=== PATIENT | female | born 1995 | race Caucasian/White ===

== ENCOUNTER 2020-05-11 12:25 | Outpatient (CLI) | payer OTHER, SELFPAY ==
--- NOTE | ~2020-05-11 | DEXA_ITS ---
Bone Density Report Name: Susan Barr Age: 24 Sex: Female Ethnicity: White Date of : 1995 Indication: Screening for Osteoporosis, snf depo use Referring Provider: Corey Gaona Study: Bone densitometry was performed. Exam Date: May 11, 2020 Accession number: [id number] Bone Density: Region BMD T-score Z-score Classification AP Spine (L1-L4) 1.156 1.0 1.0 Normal Femoral Neck (Left) 0.936 0.8 0.8 Normal Total Hip (Left) 1.130 1.5 1.5 Normal Total Hip Bilateral Avg 1.140 1.6 1.6 Normal Femoral Neck (Right) 0.952 0.9 0.9 Normal Total Hip (Right) 1.148 1.7 1.7 Normal World Health Organization criteria for BMD impression classify patients as: Normal (T-score at or above -1.0), Osteopenia (T-score between -1.0 and -2.5), or Osteoporosis (T-score at or below -2.5). 10-year Fracture Risk: FRAX not reported because: Premenopausal woman All T-scores for Spine Total, Hip Total, Femoral Neck at or above -1.0 Clinical Information Provided by Patient: Patient maximum height was 64 Drinks caffeinated beverages Onset of menses at age 12 Premenopausal Number of children 2 Impression: The patient's bone mass is within expected range for age, gender and ethnicity. Discussion: BONE DENSITY IS WITHIN EXPECTED LIMITS FOR AGE, SEX AND RACE. Bone density is within expected limits for age, sex and race at all sites measured. The patient should follow a healthful lifestyle (good nutrition with adequate calcium and vitamin D, and appropriate weight-bearing exercise). Follow-Up: Consider repeating this study in 5 years or sooner if there is some new clinical indication. Reported by: JULIA on 05/11/2020 12:53:00 PM. Reviewed, dictated and finalized at location [facility]
== END 2020-05-11 12:26 | disposition home or self-care (01) ==
LOC: ANHIMG 12:28
PROVIDERS: Visit Provider Obstetrics & Gynecology
DX: Z13.820 Encounter for screening for osteoporosis (principal)
CPT/HCPCS: 77080

== ENCOUNTER 2020-12-04 16:35 | Emergency (ER) | payer OTHER, SELFPAY ==
[2020-12-04 16:41] VITALS: BP 146/86; PULSE 100; RESP 16; TEMP 36.2; O2SAT 100
--- NOTE | 2020-12-04 16:48 | ED.DENTAL ---
HPI - Dental/Oral General Chief complaint: Dental/Oral Stated complaint: toothache Source: patient Limitations: no limitations History of Present Illness HPI Narrative: Patient presents for evaluation of left upper dental pain for the last week. She states the pain is severe, without descriptive quality, and has not responded to Tylenol or Advil. She states she has several teeth which are fractured. She states that pain is now migrating to the right side of her mouth and her right ear. No fever, chills, nausea, vomiting, trismus, problems handling secretions. She is not allergic to medications. She does not smoke. She states she contacted a dentist and they did not return her phone call. No additional complaints or concerns. Related Data Allergies Allergy/AdvReac Type Severity Reaction Status Date / Time No Known Allergies Allergy Unknown Unverified 10/14/19 17:21 Review of Systems Review of Systems: Narrative: CONSTITUTIONAL: Denies fever, chills, or sweats. EYES: Denies visual changes, redness, or discharge. ENT: Dental pain and right-sided otalgia. Denies rhinorrhea, congestion. CARDIOVASCULAR: Denies chest pain, palpitations, or edema. RESPIRATORY: Denies cough or dyspnea. GASTROINTESTINAL: Denies abdominal pain, nausea, vomiting, or diarrhea. GENITOURINARY: Denies dysuria or hematuria. SKIN: Denies rash or itching. MUSCULOSKELETAL: Denies back pain, joint pain, or myalgia. NEUROLOGIC: Denies headache, numbness, dizziness, or weakness. PSYCHIATRIC: Denies anxiety or depression. ON LICENSE OF [facility] Past Medical History Medical History (Updated 12/04/20 @ 16:53 by GELY Pacheco, ) No pertinent past medical history Surgical History Surgical History No pertinent past surgical history Family History Family History Mother No pertinent past medical history Father No pertinent past medical history Other Diabetes mellitus Social History Social History (Updated 12/04/20 @ 16:51 by GELY Pacheco, ) Smoking status: Never smoker Alcohol intake: never Substance use: never Living arrangements: with family Gender identity (if verbalized by the patient): Female Sexual Orientation (if Verbalized by the Patient): Straight or Heterosexual Spiritual care concerns: No Exam Narrative: Exam Narrative: GENERAL: Well-appearing, well-nourished, and in no acute distress. HEAD: Normocephalic, atraumatic. EYES: PERRLA and EOMI. ENT: Nares clear, no rhinorrhea or epistaxis. Mucous membranes moist. Tooth #15 and tooth #16 are both fractured. There is no visible or palpable abscess. Oropharynx without tonsillar hypertrophy exudate or other lesions. Bilateral TMs pearly martins nonbulging NECK: Supple. No adenopathy or masses. No carotid bruits or JVD CHEST: Clear to auscultation. No respiratory distress. No wheezes rales or rhonchi HEART: Regular rate and rhythm. No murmur heard. Normal peripheral pulses. ABDOMEN: Soft, nontender, nondistended, normal active bowel sounds. EXTREMITIES: Normal range of motion. No edema. SKIN: Warm, dry, no rash. NEURO: No focal deficits. Alert and oriented x3. PSYCH: Normal mood and affect. Course Course Emergency Course: This is a 25-year-old female who presents with 1 weeks worth of dental pain. On physical exam she has no drainable fluid collection. She does have 2 fractured teeth which are likely the source of her pain. We will place her on oral antibiotics. I offered to provide her prescription for analgesics, which she declined. Advised close follow-up with dentist and return for any worsening symptoms. Vital Signs Vital signs: Vital Signs Temperature 36.2 C L 12/04/20 16:41 Pulse Rate 100 12/04/20 16:41 Respiratory Rate 16 12/04/20 16:41 Blood Pressure 146/86 H 12/04/20 16:41 Pulse Oximetry 100 12/04/20 16:41 [place]
== END 2020-12-04 17:03 | disposition home or self-care (01) ==
PROVIDERS: Emergency Provider Nurse Practitioner
DX: S02.5XXA Fracture of tooth (traumatic), initial encounter for closed fracture (principal)
CPT/HCPCS: 99213; G0463

== ENCOUNTER 2022-03-16 12:19 | Outpatient (CLI) | payer OTHER, SELFPAY | END 2022-03-16 13:10 | disposition home or self-care (01) | LOC: ANHOBOP 13:07 → ANHOBPP 13:07 | PROVIDERS: Visit Provider Obstetrics & Gynecology | DX: O42.90 Premature rupture of membranes, unspecified as to length of time between rupture and onset of labor, unspecified weeks of gestation (principal); Z3A.00 Weeks of gestation of pregnancy not specified | CPT/HCPCS: 59025; 84112; 99199 ==

== ENCOUNTER 2022-04-05 04:39 | Inpatient (IN) | payer OTHER, SELFPAY ==
[2022-04-05] VITALS (126 sets, daily range): BP systolic 99–157; BP diastolic 49–101; PULSE 67–109; RESP 18; TEMP 36.2–36.9; O2SAT 97–100; BMI 40.6
--- NOTE | 2022-04-05 04:39 | LDADM ---
This patient, Susan Barr, was admitted to Labor/Delivery/Recovery 104 on 04/05/22 at 04:39. Plans for labor, pain management and were discussed with patient. Patient/family oriented to hospital policies and general routines including ID bracelet, bed and alarms, visiting hours, pain management, procedures, bathroom and other care routines, personal items, smoking policy, room service/diet and guest tray routines, security routines, and visiting hours. Patient/Family are encouraged to report perceived risks to care and to ask questions if they do not understand what they are told or what they should do. See OBIX for further documentation.
--- OUTSIDE RECORDS SUMMARY | 2022-04-05 04:45 | XMS_ITS | Encounter Summary ---
:1995 Author Reason for Visit None recorded. Assessment and Plan 1. Gestational diabetes mellitus, class A>1< ? non-stress test Discussion Note: None recorded.Patient educational handouts: No information available. Plan of Care Reminders Provider Appointments Clare 05/16/2022 8:30AM RN Schedule, correctional nurse None recorded. ? ? Referral None recorded. ? ? Procedures None recorded. ? ? Surgeries None recorded. ? ? Imaging Non-stress Test 03/28/2022 [place] Medications Name Start Date ? ? Humulin N NPH U-100 Insulin (isophane susp) 100 unit/m L subcutaneous ? INJECT 10 UNITS UNDER THE SKIN EVERY NIGHT AT BEDTIME OneTouch Delica Plus Lancet 33 gauge ? OneTouch Ultra Test strips ? TEST FOUR TIMES DAILY OneTouch Ultra2 Meter ? ? TRUEplus Insulin 0.5 mL 31 gauge x 5/16 syringe ? USE TO INJECT INSULIN EVERY DAY DIRECTED Medications Administered None recorded. Vitals None recorded. Results Lab Results None recorded. Allergies Code Code System Name Reaction Severity Onset NKDA ? ? ? Problems Name Status Onset Date Source ? Active 11/16/2021 ? Procedures Date Name Performed by ? 11/21/2021 Colposcopy Information not avai lable Notes: Colpo for abnormal pap that [place] wed lgsil 11/12/2015 Cholecystectomy Information not avai lable 03/03/2022 Non-stress Test [place] [address] [place] [address]
--- OUTSIDE RECORDS SUMMARY | 2022-04-05 04:45 | XMS_ITS | Encounter Summary ---
:1995 Author Reason for Visit OB visit ob 36wks edc 04/18/2022 lmp 07/12/2021 Assessment and Plan Assessment Note Patient is ___weeks . Discussed plan. Discussion Note: None recorded.Patient educational handouts: No information available. Plan of Care Reminders Provider Appointments Clare 05/16/2022 8:30AM RN Schedule, driver wheelchair None recorded. ? ? Referral None recorded. ? ? Procedures None recorded. ? ? Surgeries None recorded. ? ? Imaging None recorded. ? ? Medications Name Start Date ? ? Humulin [...] DAY DIRECTED Medications Administered None recorded. Vitals Height Weight BMI Blood Pressure 5 ft 3 in 229 lbs 40.6 kg/m2 133/84 mm[Hg] Results Lab Results None recorded. Allergies Code Code System Name Reaction Severity Onset NKDA ? ? ? Problems Name Status Onset Date Source ? Active 11/16/2021 ? Procedures Date Name Performed by ? 11/21/2021 Colposcopy Information not avai lable Notes: Colpo for abnormal pap that [place] wed lgsil 11/12/2015 Cholecystectomy Information not avai lable 02/21/2022 Non-stress Test
--- OUTSIDE RECORDS SUMMARY | 2022-04-05 04:45 | XMS_ITS | Encounter Summary ---
:1995 Author Reason for Visit None recorded. Assessment and Plan 1. Gestational diabetes mellitus, class A>1< ? non-stress test Discussion Note: None recorded.Patient educational handouts: No information available. Plan of Care Reminders Provider Appointments Clare 05/16/2022 8:30AM RN Schedule, principal embedded software engineer None recorded. ? ? Referral None recorded. ? ? Procedures None recorded. ? ? Surgeries None recorded. ? ? Imaging Non-stress Test 03/21/2022 [place] Medications Name Start Date ? ? Humulin [...] Information not avai lable 02/21/2022 Non-stress Test [place] [address] [place] [address]
--- OUTSIDE RECORDS SUMMARY | 2022-04-05 04:45 | XMS_ITS | Encounter Summary ---
:1995 Author Reason for Visit OB visit OB [id number] EDC LMP 07/12/2021 Assessment and Plan 1. Routine care Discussion Note: None recorded.Patient educational handouts: No information available. Plan of Care Reminders Provider Appointments Clare 05/16/2022 8:30AM RN Schedule, sexual health physician None recorded. ? ? Referral None recorded. [...] ft 3 in 229 lbs 40.6 kg/m2 138/89 mm[Hg] Results Lab Results None recorded. Allergies Code Code System Name Reaction Severity Onset NKDA ? ? ? Problems Name Status Onset Date Source ? Active 11/16/2021 ? Procedures Date Name Performed by ? 11/21/2021 Colposcopy Information not avai lable Notes: Colpo for abnormal pap that [place] wed lgsil 11/12/2015 Cholecystectomy Information not avai lable 03/03/2022 Non-stress Test [place] [id number] [address]
--- OUTSIDE RECORDS SUMMARY | 2022-04-05 04:45 | XMS_ITS | Encounter Summary ---
:1995 Author Reason for Visit None recorded. Assessment and Plan 1. Gestational diabetes mellitus, class A>1< ? non-stress test Discussion Note: None recorded.Patient educational handouts: No information available. Plan of Care Reminders Provider Appointments Clare 05/16/2022 8:30AM RN Schedule, program advocate None recorded. ? ? Referral None recorded. ? ? Procedures None recorded. ? ? Surgeries None recorded. ? ? Imaging Non-stress Test 03/14/2022 [place] Medications Name Start Date ? ? Humulin [...] DAY DIRECTED Medications Administered None recorded. Vitals Weight Blood Pressure 229 lbs 124/86 mm[Hg] Results Lab Results None recorded. Allergies Code Code System Name Reaction Severity Onset NKDA ? ? ? Problems Name Status Onset Date Source ? Active 11/16/2021 ? Procedures Date Name Performed by ? 11/21/2021 Colposcopy Information not avai lable Notes: Colpo for abnormal pap that [place] wed lgsil 11/12/2015 Cholecystectomy Information not avai lable 02/21/2022 Non-stress Test [place] [address]
--- OUTSIDE RECORDS SUMMARY | 2022-04-05 04:45 | XMS_ITS | Encounter Summary ---
:1995 Author Reason for Visit None recorded. Assessment and Plan 1. Polyhydramnios ? US, obstetric, biophysical profile Discussion Note: None recorded.Patient educational handouts: No information available. Plan of Care Reminders Provider Appointments Clare 05/16/2022 8:30AM RN Schedule, screen making supervisor None recorded. ? ? Referral None recorded. ? ? Procedures None recorded. ? ? Surgeries None recorded. ? ? Imaging US, Obstetric, Biophysical 03/28/2022 [facility] Profile Medications Name Start Date ? ? Humulin [...] Information not avai lable 03/03/2022 Non-stress Test [place] [id number] [address]
--- OUTSIDE RECORDS SUMMARY | 2022-04-05 04:45 | XMS_ITS | Encounter Summary ---
:1995 Author Reason for Visit OB visit ob [id number] edc 04/18/2022 lmp 07/12/2021 Assessment and Plan Assessment Note Patient is _35__weeks . Discuss ed plan. 1. Routine care Discussion Note: None recorded.Patient educational handouts: No information available. Plan of Care Reminders Provider Appointments Clare 05/16/2022 8:30AM RN Schedule, alumina plant supervisor None recorded. ? ? Referral None [...] BMI Blood Pressure 5 ft 3 in 231 lbs 40.9 kg/m2 121/86 mm[Hg] Results Lab Results None recorded. Allergies Code Code System Name Reaction Severity Onset NKDA ? ? ? Problems Name Status Onset Date Source ? Active 11/16/2021 ? Procedures Date Name Performed by ? 11/21/2021 Colposcopy Information not nafisa stewart Notes: Colpo for abnormal pap that [place] wed lgsil 11/12/2015 Cholecystectomy Infor
--- OUTSIDE RECORDS SUMMARY | 2022-04-05 04:45 | XMS_ITS ---
:1995 Author Care Team Providers Name Role Phone Maureen Smith Primary Care Provider Unavailable Allergies Code Code System Name Reaction Severity Status Onset NKDA ? Medications Name Status Start Date Stop Date ? ? amoxicillin 500 mg capsule Completed ? 12/29 Take 1 capsule twice a day by oral route. amoxicillin 875 mg tablet Completed ? 2021 cephalexin 500 mg capsule Completed ? 2020 Depo-Provera 150 mg/mL intramuscular suspension Completed ? 01/04/2021 Inject 1 mL every 3 months by intramuscular route. Depo-Provera 150 mg/mL intramuscular syringe Completed 07/22/2018 inject 1 milliliter by intramuscular route every 3 months Humulin N NPH U-100 Insulin (isophane susp) 100 Active ? Not available unit/mL subcutaneous ibuprofen 800 mg tablet Completed ? 01/04/20 21 OneTouch Delica Plus Lancet 33 gauge Active ? Not available OneTouch Ultra Test strips Active ? Not a vailable TEST FOUR TIMES DAILY OneTouch Ultra2 Meter Active ? Not availa ble Active ? Not available TRUEplus Insulin 0.5 mL 31 gauge x 5/16 Active ? Not available syringe Vitamin D2 1,250 mcg (50,000 unit) capsule Completed 04/1007/15/2014 take 1 capsule ([id number]) by oral route every week Problems Name Status Onset Date Source ? Uterine Size for Dates Discrepancy Unknown 12/09/2012 History Test Positive Unknown 12/09/2012 History Screening for Malignant Neoplasm of Cervix Unknown 12/09 History Congenital Malformation Unknown 12/11/2012 History Ultrasonography Unknown 12/11/2012
--- OUTSIDE RECORDS SUMMARY | 2022-04-05 04:45 | XMS_ITS | Encounter Summary ---
:1995 Author Reason for Visit None recorded. Assessment and Plan 1. Gestational diabetes mellitus, class A>1< ? non-stress test Discussion Note: None recorded.Patient educational handouts: No information available. Plan of Care Reminders Provider Appointments Clare 05/16/2022 8:30AM RN Schedule, tv host None recorded. ? ? Referral None recorded. ? ? Procedures None recorded. ? ? Surgeries None recorded. ? ? Imaging Non-stress Test 03/17/2022 [place] Medications Name Start Date ? ? Humulin [...] Information not avai lable 02/21/2022 Non-stress Test [place] [address] [place] [address]
--- OUTSIDE RECORDS SUMMARY | 2022-04-05 04:45 | XMS_ITS | Encounter Summary ---
:1995 Author Reason for Visit OB visit ob [id number] edc 04/18/2022 lmp 07/12/2021 Assessment and Plan Assessment Note Patient is _34_weeks . Discusse d plan. 1. Routine care Discussion Note: None recorded.Patient educational handouts: No information available. Plan of Care Reminders Provider Appointments Clare 05/16/2022 8:30AM RN Schedule, scout sniper None recorded. ? ? Referral None recorded. [...] ft 3 in 229 lbs 40.6 kg/m2 128/85 mm[Hg] Results Lab Results None recorded. Allergies Code Code System Name Reaction Severity Onset NKDA ? ? ? Problems Name Status Onset Date Source ? Active 11/16/2021 ? Procedures Date Name Performed by ? 11/21/2021 Colposcopy Information not nafisa stewart Notes: Colpo for abnormal pap that [place] wed lgsil 11/12/2015 Cholecystectomy Info
--- OUTSIDE RECORDS SUMMARY | 2022-04-05 04:45 | XMS_ITS | Encounter Summary ---
:1995 Author Reason for Visit None recorded. Assessment and Plan 1. Chronic hypertension complicating AN D/OR reason for care during ? US, obstetric, follow-up ? US, obstetric, biophysical profile + non-stress test Discussion Note: None recorded.Patient educational handouts: No information available. Plan of Care Reminders Provider Appointments Clare 05/16/2022 8:30AM RN Schedule, floorleader None recorded. ? ? Referral None recorded. ? ? Procedures None recorded. ? ? Surgeries None recorded. ? ? Imaging US, Obstetric, Follow-up 03/21/2022 [place] ? US, Obstetric, Biophysical 03/21/2022 [facility] [place] Profile + Non-stress Test Medications Name Start Date ? ? Humulin [...] Performed by ? 11/21/2021 Colposcopy Information not jamesai labmag Notes: Colpo for abnormal pap that [place] wed lgsil 11/12/2015 Cholecystectom
--- OUTSIDE RECORDS SUMMARY | 2022-04-05 04:46 | XMS_ITS | Encounter Summary ---
:1995 Author Reason for Visit None recorded. Assessment and Plan Assessment Note Diet Teaching 1. Gestational diabetes mellitus, class A>1< Pt requested diet teaching over the maru ne due to child caregiver. Diet teaching completed. Carb counts for meals and sna cks reviewed. Pt instructed on how to read nutritional labels and instructed on res earching carb counts for fresh fruits and vegetables. Pt provided with print outs via email with some fresh food carb counts and online resources reinforced for [facility] fresh food serving sizes and carb counts. Pt instructed on blood sugar lev el goals and importance of checking blood sugar and keeping blood sugar log. Pt in structed on high protein low carb and provided with food recommendations. Pt i nstructed on 2200 calorie ADA diet and importance of regular meals and snacks w ith controlled carb amounts for a detention stable control of blood sugar. Pt had sp ecific questions regarding sandwiches and caffine and was provided with recommenda tions. Pt also asked for specific meal options and breakfast, lunch, dinner, an d snack recommendations were discussed. Pt's next appt with KP is in 2 weeks so pt in formed we will call her next week to review her BS log. Pt verbalized understanding of information discussed. Suki Mahoney RN Discussion Note: None recorded.Patient educational handouts: No information available. Plan of Care Reminders Provider Appointments Clare 05/16/2022 8:30AM RN Schedule, historiography teacher None recorded. ? ? Referral None recorded. ? ? Procedures None recorded. ? ? Surgeries None recorded. ? ? Imaging None recorded. ? ? Medications Name Start Date ? ?
--- OUTSIDE RECORDS SUMMARY | 2022-04-05 04:46 | XMS_ITS | Encounter Summary ---
:1995 Author Reason for Visit OB visit 32WKS Assessment and Plan 1. Routine care Discussion Note: None recorded.Patient educational handouts: No information available. Plan of Care Reminders Provider Appointments Clare 05/16/2022 8:30AM RN Schedule, insurance healthcare consultant None recorded. ? ? Referral None recorded. [...] BMI Blood Pressure 5 ft 3 in 225 lbs 39.9 kg/m2 120/85 mm[Hg] Results Lab Results None recorded. Allergies Code Code System Name Reaction Severity Onset NKDA ? ? ? Problems Name Status Onset Date Source ? Active 11/16/2021 ? Procedures Date Name Performed by ? 11/21/2021 Colposcopy Information not avai lable Notes: Colpo for abnormal pap that win[place] wed lgsil 11/12/2015 Cholecystectomy Information not avai lable 02/21/2022 Non-stress Test [place] [address]
--- OUTSIDE RECORDS SUMMARY | 2022-04-05 04:46 | XMS_ITS | Encounter Summary ---
:1995 Author Reason for Visit OB visit 27w2d Assessment and Plan 1. Routine care Discussion Note: None recorded.Patient educational handouts: No information available. Plan of Care Reminders Provider Appointments Clare 05/16/2022 8:30AM RN Schedule, pipe stem aligner None recorded. ? ? Referral None recorded. [...] BMI Blood Pressure 5 ft 3 in 226 lbs 40 kg/m2 130/81 mm[Hg] Results Lab Results None recorded. Allergies Code Code System Name Reaction Severity Onset NKDA ? ? ? Problems Name Status Onset Date Source ? Active 11/16/2021 ? Procedures Date Name Performed by ? 11/21/2021 Colposcopy Information not avai lable Notes: Colpo for abnormal pap that win[place] wed lgsil 11/12/2015 Cholecystectomy Information not avai lable 12/29/2021 US, Obstetric, Follow-up [place] [address] [address]
--- OUTSIDE RECORDS SUMMARY | 2022-04-05 04:46 | XMS_ITS | Encounter Summary ---
:1995 Author Reason for Visit None recorded. Assessment and Plan 1. condition affecting obstetrica l care of mother ? US, obstetric, biophysical profile Discussion Note: None recorded.Patient educational handouts: No information available. Plan of Care Reminders Provider Appointments Clare 05/16/2022 8:30AM RN Schedule, communication studies professor None recorded. ? ? Referral None recorded. ? ? Procedures None recorded. ? ? Surgeries None recorded. ? ? Imaging US, Obstetric, Biophysical 03/03/2022 [facility] Profile Medications Name Start Date ? ? [...] Information not avai lable 02/21/2022 Non-stress Test [place] [address]
--- OUTSIDE RECORDS SUMMARY | 2022-04-05 04:46 | XMS_ITS | Encounter Summary ---
:1995 Author Reason for Visit OB visit OB [id number] EDC 04/18/2022 LMP 07/12/2021 Assessment and Plan 1. Routine care Discussion Note: None recorded.Patient educational handouts: No information available. Plan of Care Reminders Provider Appointments Clare 05/16/2022 8:30AM RN Schedule, teletype or varitype keyboard operator None recorded. ? ? Referral None recorded. [...] BMI Blood Pressure 5 ft 3 in 223 lbs 39.5 kg/m2 130/76 mm[Hg] Results Lab Results None recorded. Allergies Code Code System Name Reaction Severity Onset NKDA ? ? ? Problems Name Status Onset Date Source ? Active 11/16/2021 ? Procedures Date Name Performed by ? 11/21/2021 Colposcopy Information not avai lable Notes: Colpo for abnormal pap that [place] sun lgsil 11/12/2015 Cholecystectomy Information not avai lable Vaccine List None recorded. Social History Tobacco Smoking Status Never Smoker
--- OUTSIDE RECORDS SUMMARY | 2022-04-05 04:46 | XMS_ITS | Encounter Summary ---
:1995 Author Reason for Visit None recorded. Assessment and Plan 1. Gestational diabetes mellitus, class A>1< ? non-stress test Discussion Note: None recorded.Patient educational handouts: No information available. Plan of Care Reminders Provider Appointments Clare 05/16/2022 8:30AM RN Schedule, converter supervisor None recorded. ? ? Referral None recorded. ? ? Procedures None recorded. ? ? Surgeries None recorded. ? ? Imaging Non-stress Test 02/21/2022 [place] Medications Name Start Date ? ? Humulin [...] Information not avai lable 02/21/2022 Non-stress Test [place] [address] [place] [address]
--- OUTSIDE RECORDS SUMMARY | 2022-04-05 04:46 | XMS_ITS | Encounter Summary ---
:1995 Author Reason for Visit None recorded. Assessment and Plan 1. Gestational diabetes mellitus, class A>1< ? non-stress test Discussion Note: None recorded.Patient educational handouts: No information available. Plan of Care Reminders Provider Appointments Clare 05/16/2022 8:30AM RN Schedule, director food and beverage None recorded. ? ? Referral None recorded. ? ? Procedures None recorded. ? ? Surgeries None recorded. ? ? Imaging Non-stress Test 03/03/2022 [place] Medications Name Start Date ? ? Humulin [...] Information not avai lable 02/21/2022 Non-stress Test [place] [address] [place] [address]
--- OUTSIDE RECORDS SUMMARY | 2022-04-05 04:46 | XMS_ITS | Encounter Summary ---
:1995 Author Reason for Visit None recorded. Assessment and Plan 1. Gestational diabetes mellitus, class A>1< ? non-stress test Discussion Note: None recorded.Patient educational handouts: No information available. Plan of Care Reminders Provider Appointments Clare 05/16/2022 8:30AM RN Schedule, online merchandising coordinator None recorded. ? ? Referral None recorded. ? ? Procedures None recorded. ? ? Surgeries None recorded. ? ? Imaging Non-stress Test 03/10/2022 [place] Medications Name Start Date ? ? Humulin [...] Information not avai lable 02/21/2022 Non-stress Test [place] [address] [place] [address]
--- OUTSIDE RECORDS SUMMARY | 2022-04-05 04:46 | XMS_ITS | Encounter Summary ---
:1995 Author Reason for Visit OB visit OB [id number] EDC 04/18/2022 LMP 07/12/2021 Assessment and Plan Assessment Note Patient is _33__weeks . Discuss ed plan. 1. Routine care Discussion Note: None recorded.Patient educational handouts: No information available. Plan of Care Reminders Provider Appointments Clare 05/16/2022 8:30AM RN Schedule, shine worker None recorded. ? ? Referral None recorded. [...] ft 3 in 225 lbs 39.9 kg/m2 (1) 141/94 mm[H g] (2) 119/80 mm[Hg ] Results Lab Results None recorded. Allergies Code Code System Name Reaction Severity Onset NKDA ? ? ? Problems Name Status Onset Date Source ? Active 11/16/2021 ? Procedures Date Name Performed by ? 11/21/2021 Colposcopy Information not avai lable Notes: Colpo for abnorm
--- OUTSIDE RECORDS SUMMARY | 2022-04-05 04:46 | XMS_ITS | Encounter Summary ---
:1995 Author Reason for Visit None recorded. Assessment and Plan 1. Gestational diabetes mellitus, class A>1< ? US, obstetric, follow-up Discussion Note: None recorded.Patient educational handouts: No information available. Plan of Care Reminders Provider Appointments Clare 05/16/2022 8:30AM RN Schedule, industrial design intern None recorded. ? ? Referral None recorded. ? ? Procedures None recorded. ? ? Surgeries None recorded. ? ? Imaging US, Obstetric, Follow-up 02/21/2022 [place] Medications Name Start Date ? ? Humulin [...] Information not avai lable 02/21/2022 Non-stress Test [place] [address] [place] [address]
--- OUTSIDE RECORDS SUMMARY | 2022-04-05 04:46 | XMS_ITS | Encounter Summary ---
:1995 Author Reason for Visit None recorded. Assessment and Plan 1. Gestational diabetes mellitus, class A>1< ? non-stress test Discussion Note: None recorded.Patient educational handouts: No information available. Plan of Care Reminders Provider Appointments Clare 05/16/2022 8:30AM RN Schedule, mixing place supervisor None recorded. ? ? Referral None recorded. ? ? Procedures None recorded. ? ? Surgeries None recorded. ? ? Imaging Non-stress Test 03/07/2022 [place] Medications Name Start Date ? ? Humulin [...] recorded. Vitals Weight Blood Pressure 229 lbs 134/84 mm[Hg] Results Lab Results None recorded. Allergies Code Code System Name Reaction Severity Onset NKDA ? ? ? Problems Name Status Onset Date Source ? Active 11/16/2021 ? Procedures Date Name Performed by ? 11/21/2021 Colposcopy Information not avai lable Notes: Colpo for abnormal pap that [place] wed lgsil 11/12/2015 Cholecystectomy Information not avai lable 02/21/2022 Non-stress Test [place] [address]
[2022-04-05 05:49] LABS: Basophils Percent Auto 0.4 % (0.2-1.2); Eosinophils Percent Auto 0.4 % (0-4.4); Hemoglobin 11.2 g/dL (12.0-15.0); Immature Granulocyte Absolute 0.03 K/mm3 (0.00-0.031); Immature Granulocyte Percent A 0.4 % (0-0.5); Lymphocytes Absolute Auto 1.95 K/mm3 (0.9-3.2); Lymphocytes Percent Auto 26.1 % (18.3-44.2); Mean Corpuscular Hemoglobin 26.1 pg (26-34); Mean Corpuscular Volume 81.6 fl (80-100); Mean Platelet Volume 12.8 fl (7.4-10.4); Monocytes Absolute Auto 0.6 K/mm3 (0.1-0.6); Monocytes Percent Auto 7.6 % (2.6-8.5); Neutrophils Absolute Auto 4.9 K/mm3 (1.3-6.7); Neutrophils Percent Auto 65.1 % (45.5-73.1); Platelet Count Result 144 k/mm3 (150-375); Red Blood Count 4.29 M/mm3 (4.2-5.4); Red Cell Distribution Width 13.5 % (11.5-14.5); White Blood Count 7.5 K/mm3 (4.5-10.0)
[2022-04-05] MEDS: OXYTOCIN 30 UNITS/NS 500 ML 30 UNITS/500 ML BAG IV CONT (05:55)
[2022-04-05] MEDS: LACTATED RINGERS 1,000 ML 125 ML IV CONT ×3 (05:55→12:38)
[2022-04-05 06:07] LABS: Alanine Aminotransferase 13 U/L (6-35); Albumin Level 3.6 g/dL (3.5-5.1); Alkaline Phosphatase 556 U/L (38-126); Anion Gap 7 mmol/L (8-16); Aspartate Amino Transferase 23 U/L (14-36); Bilirubin,Total 0.2 mg/dL (0.2-1.3); Blood Urea Nitrogen 13 mg/dL (7-17); Calcium 8.3 mg/dL (8.4-10.2); Carbon Dioxide 20 mmol/L (22-30); Chloride 105 mmol/L (98-107); Estimated CRCL calculation 120 ml/min; Estimated Glomerular Filt Rate > 60; Glucose 101 mg/dL (65-110); Potassium 3.9 mmol/L (3.4-5.0); Sodium 132 mmol/L (137-145)
[2022-04-05 06:11] LABS: Uric Acid 5.7 mg/dL (2.5-7.5)
--- NOTE | 2022-04-05 06:19 | WPDANESEPP ---
Anes - Eval Pre Procedure Procedure: labor epidural Date/Time: 04/05/22 06:19 Surgeon: katie Pre Op Diagnosis: Induction Patient Data Age: 26 Gender: F Height: 1.6 m Weight: 104 kg Last Vital Signs Temp 36.4 C L 04/05/22 06:00 Pulse 82 04/05/22 05:58 BP 150/89 H 04/05/22 06:15 O2 Del Method Room Air 04/05/22 05:03 Allergies Allergy/AdvReac Type Severity Reaction Status Date / Time No Known Allergies Allergy Unknown Unverified 10/14/19 17:21 Home Medications Medication Instructions Recorded Confirmed Type vit no.95-ferrous 1 tablet PO DAILY 03/13/22 03/13/22 History fumarate 28 mg-folic acid 800 mcg tablet () Laboratory Tests 04/05/22 04/05/22 04/05/22 05:40 05:40 05:40 WBC 7.5 K/mm3 K/mm3 (4.5-10.0) RBC 4.29 M/mm3 M/mm3 (4.2-5.4) Hgb 11.2 g/dL L g/dL (12.0-15.0) Hct 35.0 % L % (37.0-47.0) MCV 81.6 fl fl (80-100) MCH 26.1 pg pg (26-34) MCHC 32.0 g/dl g/dl (32-36) RDW 13.5 % % (11.5-14.5) Plt Count 144 k/mm3 L k/mm3 (150-375) MPV 12.8 fl H fl (7.4-10.4) Immature Gran % (Auto) 0.4 % % (0-0.5) Neut % (Auto) 65.1 % % (45.5-73.1) Lymph % (Auto) 26.1 % % (18.3-44.2) [place] % (Auto) 7.6 % % (2.6-8.5) Eos % (Auto) 0.4 % % (0-4.4) Baso % (Auto) 0.4 % % (0.2-1.2) Lymph # (Auto) 1.95 K/mm3 K/mm3 (0.9-3.2) [place] # (Auto) 0.6 K/mm3 K/mm3 (0.1-0.6) Eos # (Auto) 0.0 K/mm3 K/mm3 (0-0.3) Baso # (Auto) 0.0 K/mm3 K/mm3 (0.0-0.1) Abs Immat Gran (auto) 0.03 K/mm3 K/mm3 (0.00-0.031) Absolute Neuts (auto) 4.9 K/mm3 K/mm3 (1.3-6.7) Absolute Nucleated RBC 0.0 K/mm3 K/mm3 (0.0-0.012) Nucleated RBC % 0.0 % % (0.0-0.2) Sodium Potassium Chloride Carbon Dioxide Anion Gap BUN Creatinine Estim Creat Clear Calc Estimated GFR Glucose Uric Acid 5.7 mg/dL mg/dL (2.5-7.5) Calcium Total Bilirubin AST ALT Alkaline Phosphatase Total Protein Albumin RPR Pending 04/05/22 05:40 WBC RBC Hgb Hct MCV MCH MCHC RDW Plt Count MPV Immature Gran % (Auto) Neut % (Auto) Lymph % (Auto) [place] % (Auto) Eos % (Auto) Baso % (Auto) Lymph # (Auto) [place] # (Auto) Eos # (Auto) Baso # (Auto) Abs Immat Gran (auto) Absolute Neuts (auto) Absolute Nucleated RBC Nucleated RBC % Sodium 132 mmol/L L mmol/L (137-145) Potassium 3.9 mmol/L mmol/L (3.4-5.0) Chloride 105 mmol/L mmol/L (98-107) Carbon Dioxide 20 mmol/L L mmol/L (22-30) Anion Gap 7 mmol/L L mmol/L (8-16) BUN 13 mg/dL mg/dL (7-17) Creatinine 0.70 mg/dL mg/dL (0.7-1.0) Estim Creat Clear Calc 120 ml/min ml/min Estimated GFR > 60 (59 - ) Glucose 101 mg/dL mg/dL (65-110) Uric Acid Calcium 8.3 mg/dL L mg/dL (8.4-10.2) Total Bilirubin 0.2 mg/dL mg/dL (0.2-1.3) AST 23 U/L U/L (14-36) ALT 13 U/L U/L (6-35) Alkaline Phosphatase 556 U/L H U/L (38-126) Total Protein 7.0 g/dL g/dL (6.3-8.2) Albumin 3.6 g/dL g/dL (3.5-5.1) RPR Patient hx anesthesia problems: none Family hx anesthesia problems: none Results Review: All pre-operative results and documents have been reviewed as part of the pre-operative evaluation. [facility] Past Medical History Medical History (Updated 04/05/22 @ 06:21 by Traci Interiano CRNA) Gestational diabetes Gestational HTN No pertinent past medical history Surgical
--- NOTE | 2022-04-05 07:11 | WPDOBADMIT ---
Obstetrics - Admit Note Admission Note: record reviewed. No pertinent additions to the history and/or any subsequent changes in the physical findings that are not consistent with the expected course of the were found. Patient admitted to labor and delivery for IOL for diet controlled GDM. 1.5/60/-2. AROM with light amount of clear odorless fluid. Anticipate Vaginal delivery. Additions to the history and/or subsequent changes in the physical findings follow. None.
[2022-04-05 09:32] LABS: Glucose Point of Care 98 mg/dl (65-105)
[2022-04-05 12:15] LABS: Glucose Point of Care 93 mg/dl (65-105)
[2022-04-05] MEDS: SODIUM CHLORIDE 0.9% IV 300 ML 600 ML I-UTERINE (12:38)
--- NOTE | 2022-04-05 13:56 | PM.OBPRVD ---
OB - Delivery Note Procedure Procedure: Events: Chronic Hypertension and Gestational Diabetes Induction method: Per Pitocin Protocol Delivery monitor: External FHT and External Uterine Route of delivery: Quantitative Blood Loss (ml): 183 Anesthesia type: Epidural Narrative: Mother and baby in stable condition. Cord gasses collected and handed off to staff. Baby Date of : 04/05/22 Time of : 13:25 Weeks of gestation at delivery: 38 gender: Male Weight (pounds): 7 Weight (ounces): 10 presentation: vertex position: Left Occiput Anterior Placenta delivery description: Spontaneous
[2022-04-05] MEDS: OXYTOCIN 30 UNITS/NS 500 ML 30 UNITS/500 ML BAG 125 UNITS IV CONT (14:01)
[2022-04-05 14:32] LABS: Rapid Plasma Reagin Non-Reactive (NonReactive)
[2022-04-05] MEDS: WITCH HAZEL 40 PADS 1 PAD TOPICAL (16:13)
--- NOTE | 2022-04-05 17:56 | OBPPTRN ---
1633 Patient transferred to post room #282 via W/C. Support person present. Oriented to unit, room, information board, rooming in, admission packet and security measures. Patient verbalizes understanding.
[2022-04-06] VITALS: BP 123/74; PULSE 89; RESP 18; TEMP 37.1; O2SAT 98
[2022-04-06] MEDS: IBUPROFEN 600 MG TABLET PO ×2 (03:56→11:02)
[2022-04-06 03:58] VITALS: BP 127/80; PULSE 77; RESP 18; TEMP 35.8; O2SAT 98
[2022-04-06 05:22] LABS: Hematocrit 34.7 % (37.0-47.0)
--- NOTE | 2022-04-06 06:30 | PC.NURSE ---
Pt introductions made and plan of care discussed per post , pain management, bottle feeding, daily care activities and pending discharge to home. PT and significant other both recipients of such instructions and no barriers to learning identified at this time. PT received such instructions per one to one discussion, mom baby care guide and demonstrations this shift. PT verbalized understanding of such care.
[2022-04-06 06:31] LABS: Glucose Point of Care 85 mg/dl (65-105)
--- NOTE | 2022-04-06 07:39 | PM.OBPNVD ---
OB - PN: Subj Subjective Date/time seen: 04/06/22 07:39 Patient comments: no complaints, pain well controlled, incisional pain, tolerating diet and flatus present OB - PN: Obj Data Labs CBC & Chem 7: 04/06/22 03:45 04/05/22 05:40 Labs: Laboratory Results - last 24 hr 04/05/22 04/05/22 04/05/22 05:40 09:30 12:12 Hgb Hct POC Capillary Glucose 98 93 RPR Non-reactive 04/06/22 04/06/22 03:45 06:28 Hgb 11.0 L Hct 34.7 L POC Capillary Glucose 85 RPR OB - PN A/P Plan day: 1 Plan: routine care Comments: No problems, routine care Time Spent With Patient Time: Total time spent is greater than 50% in coordination of care (as documented) at patient's floor/unit and/or counseling patient: Exam Const: General: comfortable, no acute distress and alert Resp: Effort & Inspection: normal respiratory effort Auscultation: no crackles, no rales and no rhonchi Cardio: Rate: regular rate Heart sounds: no click, no murmurs and no rubs GI: Inspection: non-distended GI Palp: No Tenderness to palpation present (GI) Auscultation: normal bowel sounds Other: Incision - CDI Extrem: General: normal to inspection, no pedal edema and no calf tenderness
--- NOTE | 2022-04-06 07:40 | PM.OBDSVD ---
DS: Admitting Diagnosis Discharge Date 04/06/2022 Admitting Diagnosis term gestation DS: Discharge Diagnosis Discharge Diagnosis (1) Term : Code(s): Z34.90 - Encounter for supervision of normal , unspecified, unspecified trimester Status: Acute OB - DS: Summary OB Procedures : None OB Procedures Intrapartum: Spontaneous Vag Delivery OB Procedures: : None Time Spent with Patient Time attestation: Total time spent providing and/or coordinating discharge services: DS: Data Data Completed and Pending Pending studies at discharge: Pending at discharge 04/05/22 15:36 Surgical [PTH] Routine Labs on day of discharge: Labs from last 24 hours 04/06/22 04/06/22 04/05/22 06:28 03:45 12:12 Hgb 11.0 L Hct 34.7 L POC Capillary Glucose 85 93 RPR 04/05/22 04/05/22 09:30 05:40 Hgb Hct POC Capillary Glucose 98 RPR Non-reactive Discharge Plan Discharge Discharging Clinician: Corey Gaona Patient Disposition: Home, Self-Care Activity: pelvic rest Diet: regular Patient Instructions: Antibiotic Form Stand Alone Forms: General Discharge Information Follow-up/Referrals: Corey Gaona MD [Physician] - Discharge Medications: Continued PNV cmb#95-ferrous fumarate-FA [] 28 mg iron- 800 mcg Tablet 1 tablet PO DAILY Date of admission: 04/05/22 04:39 Primary Care Provider: PHYSICIAN,MANUFACTURING BUSINESS ANALYST Admitting Provider: Corey Gaona Attending physician on admission: Maureen Smith Condition: Stable
[2022-04-06 08:00] VITALS: BP 131/86; PULSE 86; RESP 16; TEMP 36.2; O2SAT 99
--- NOTE | 2022-04-06 09:24 | WPDANLDPN2 ---
Anes-Prog Note L&D Date/Time: 04/06/22 09:24 Comfortable throughout: labor and delivery Neuraxial method: epidural Epidural/Spinal procedure site: clean & non-tender Neuro status: Neuro function grossly intact. Cardiovascular status: normal Respiratory status: normal Airway patency: baseline Mental status: baseline Post-Op hydration status: normal Vital Signs: Last Vital Signs Temp 35.8 C L 04/06/22 03:58 Pulse 77 04/06/22 03:58 Resp 18 04/06/22 03:58 BP 127/80 04/06/22 03:58 Pulse Ox 98 04/06/22 03:58 O2 Del Method Room Air 04/05/22 20:00 Pain score (VAS): 10 Post-procedural complaints: none Patient feedback: Patient satisfied with anesthetic care.
[2022-04-06 11:00] VITALS: PULSE 86; RESP 16; O2SAT 99
[2022-04-06] MEDS: DOCUSATE SODIUM 100 MG CAPSULE PO (11:02)
[2022-04-06] MEDS: ACETAMINOPHEN 325 MG TABLET 650 MG PO (11:03)
[2022-04-06] MEDS: MULTIVIT/MIN/PREN/FOL AC/IRON TABLET 1 TAB PO (11:03)
[2022-04-06 11:41] VITALS: BP 129/83; PULSE 72; RESP 16; TEMP 36.3; O2SAT 100
--- NOTE | 2022-04-06 14:30 | PC.NURSE ---
PT received discharge instructions per protocol and verbalized understanding of such care.
--- NOTE | 2022-04-06 15:00 | PC.NURSE ---
Pt discharged to home ambulatory to waiting car accompanied by family and infant. Follow up appts confirmed
== END 2022-04-06 15:00 | disposition home or self-care (01) | DRG 560 ==
LOC: ANHOB2 04-06 08:18 → ANHLDR 04-07 09:23 → ANHOB2 04-07 09:23
PROVIDERS: Advanced Practice Midwife; Admitting Provider Obstetrics & Gynecology; Visit Provider Obstetrics & Gynecology
DX: O24.420 Gestational diabetes mellitus in childbirth, diet controlled (principal); Z37.0 Single live birth; Z3A.38 38 weeks gestation of pregnancy; O13.4 Gestational [pregnancy-induced] hypertension without significant proteinuria, complicating childbirth; O36.8330 Maternal care for abnormalities of the fetal heart rate or rhythm, third trimester, not applicable or unspecified
CPT/HCPCS: 36415; 80053; 82948; 84550; 85014; 85018; 85025; 86592; 86850; 86900; 86901; 88307; A9270; J2590; J2795; J7030; J7120

== ENCOUNTER 2022-10-10 08:37 | Emergency (ER) | payer OTHER, SELFPAY ==
[2022-10-10 08:57] VITALS: BP 139/70; PULSE 101; RESP 16; TEMP 36.3; O2SAT 99
--- NOTE | 2022-10-10 09:29 | ED.URI ---
HPI - URI/Sore Throat General Chief Complaint: Upper Respiratory Infection Stated Complaint: sore throat Time Seen by Provider: 10/10/22 09:21 History of Present Illness HPI Narrative: 26-year-old female presented for complaint of sore throat and right neck pain over the last 2 days. Pain worse with swallowing or eating. Pain radiates to the left ear. She rates pain 4/10. She endorses she gets strep throat at least twice a year and this feels similar. She denies associated sinus congestion, headache, nausea, cough, shortness of breath or wheezing. She has not taken anything for symptoms. Denies sick contacts. Related Data Home Medications Medication Instructions Recorded Confirmed vit no.95-ferrous 1 tablet PO DAILY 03/13/22 03/13/22 fumarate 28 mg-folic acid 800 mcg tablet () Allergies Allergy/AdvReac Type Severity Reaction Status Date / Time No Known Allergies Allergy Unknown Verified 10/10/22 09:48 Review of Systems Review of Systems: CONSTITUTIONAL: Denies body aches, fever, chills, or sweats. EYES: Denies visual changes, redness, or discharge. ENT: Denies rhinorrhea, congestion, or otalgia. CARDIOVASCULAR: Denies chest pain, palpitations, or edema. RESPIRATORY: Denies dyspnea. GASTROINTESTINAL: Denies abdominal pain, nausea, vomiting, or diarrhea. SKIN: Denies rash, itching, or wounds. MUSCULOSKELETAL: Denies back pain, joint pain, or myalgia. NEUROLOGIC: Denies headache PMFSH Past Medical History Medical History Gestational diabetes Gestational HTN No pertinent past medical history Surgical History Surgical History No pertinent past surgical history Family History Family History Mother No pertinent past medical history Father No pertinent past medical history Other Diabetes mellitus Social History Social History Smoking status: Never smoker Second hand tobacco smoke exposure: No Alcohol intake: never Substance use: never Gender identity (if verbalized by the patient): Female Sexual Orientation (if Verbalized by the Patient): Straight or Heterosexual Spiritual care concerns: No Exam Narrative: GENERAL: well-appearing, no acute distress. EYES: conjunctivae clear ENT: Mucous membranes moist. TMs pearly martins with normal light reflex bilaterally; no tragal tenderness. Oropharynx erythematous without lesions. Tonsils enlarged 3+ and without exudate. No drooling, no hoarseness, no trismus, uvula midline. No tripod positioning, hot potato voice, or soft palate swelling. NECK: Supple. right anterior cervical lymphadenopathy CHEST: Clear to auscultation, breath sounds equal. No respiratory distress, speaks in full sentences. HEART: Regular rate and rhythm. No murmur heard. SKIN: Warm, dry, no rash. NEURO: Alert and oriented x3. Course Course Emergency Course: Patient is aware of diagnosis, understands and agrees to treatment plan. Anticipatory guidance given. Patient agrees to follow-up as directed and is aware of reasons to seek care at the emergency department. Portions of this record may have been created with voice recognition software Level of Care: Express Care Visit Vital Signs Vital signs: Vital Signs Temperature 97.3 F L 10/10/22 08:57 Pulse Rate 101 H 10/10/22 08:57 Respiratory Rate 16 10/10/22 08:57 Blood Pressure 139/70 10/10/22 08:57 Pulse Oximetry 99 10/10/22 08:57 Oxygen Delivery Room Air 10/10/22 08:57 Temperature 97.3 F L 10/10/22 08:57 Pulse Rate 101 H 10/10/22 08:57 Respiratory Rate 16 10/10/22 08:57 Blood Pressure 139/70 10/10/22 08:57 Pulse Oximetry 99 10/10/22 08:57 Oxygen Delivery Room Air 10/10/22 08:57 MDM - URI/Sore Throat MDM Narrative Med
== END 2022-10-10 09:52 | disposition home or self-care (01) ==
PROVIDERS: Emergency Provider Nurse Practitioner Family
DX: J02.9 Acute pharyngitis, unspecified (principal)
CPT/HCPCS: 87081; 87880; 99213; G0463

== ENCOUNTER 2023-02-12 08:29 | Inpatient (IN) | payer OTHER, SELFPAY ==
[2023-02-12] VITALS (68 sets, daily range): BP systolic 110–146; BP diastolic 59–90; PULSE 83–117; RESP 18; TEMP 36.6–37.5; O2SAT 96–100; BMI 40.4
--- NOTE | ~2023-02-12 | US_ITS ---
EXAMINATION: US OB limited DATE: 02/12/2023 09:08 INDICATION: presentation assessment during third trimester TECHNIQUE: Real-time ultrasound of the pelvis was performed. The interpreting radiologist was not pre sent for the study. COMPARISON: None. FINDINGS: There is a single living fetus in vertex presentation. The placenta is fundal. cardia c activity and movement are noted. heart rate is 139 beats per minute (bpm). The amniotic fluid index is subjectively normal. IMPRESSION: 1. Single living fetus in vertex presentation. Reviewed, dictated and finalized at location B.
[2023-02-12 08:56] LABS: Basophils Percent Auto 0.4 % (0.2-1.2); Eosinophils Percent Auto 0.2 % (0-4.4); Hematocrit 33.7 % (37.0-47.0); Hemoglobin 10.8 g/dL (12.0-15.0); Immature Granulocyte Absolute 0.04 K/mm3 (0.00-0.031); Immature Granulocyte Percent A 0.4 % (0-0.5); Immature Platelet Fraction Pct 15.1 % (0.9-11.2); Lymphocytes Absolute Auto 1.46 K/mm3 (0.9-3.2); Lymphocytes Percent Auto 15.2 % (18.3-44.2); Mean Corpuscular Hemoglobin 26.7 pg (26-34); Mean Corpuscular Volume 83.2 fl (80-100); Mean Platelet Volume 12.2 fl (7.4-10.4); Monocytes Absolute Auto 0.5 K/mm3 (0.1-0.6); Neutrophils Absolute Auto 7.6 K/mm3 (1.3-6.7); Neutrophils Percent Auto 78.8 % (45.5-73.1); Platelet Count Result 133 k/mm3 (150-375); Red Blood Count 4.05 M/mm3 (4.2-5.4); Red Cell Distribution Width 14.6 % (11.5-14.5); White Blood Count 9.6 K/mm3 (4.5-10.0)
--- NOTE | 2023-02-12 09:01 | LDADM ---
This patient, Susan Barr, was admitted to Labor/Delivery/Recovery 108 on 02/12/23 at 08:29. Plans for labor, pain management and were discussed with patient. Patient/family oriented to hospital policies and general routines including ID bracelet, bed and alarms, visiting hours, pain management, procedures, bathroom and other care routines, personal items, smoking policy, room service/diet and guest tray routines, security routines, and visiting hours. Patient/Family are encouraged to report perceived risks to care and to ask questions if they do not understand what they are told or what they should do. See [facility] for further documentation.
[2023-02-12 09:22] LABS: Glucose Point of Care 83 mg/dl (65-105)
--- NOTE | 2023-02-12 09:25 | WPDANESEPP ---
Anes - Eval Pre Procedure Procedure: labor epidural Date/Time: 02/12/23 09:25 Surgeon: katie Preop Diagnosis: pain during labor Pre Op Diagnosis: Leaking and Contractions Patient Data Age: 27 Gender: F Height: 1.63 m Weight: 107 kg Last Vital Signs Temp 36.6 C 02/12/23 08:53 Pulse 92 02/12/23 09:15 BP 131/80 02/12/23 09:15 Allergies Allergy/AdvReac Type Severity Reaction Status Date / Time No Known Allergies Allergy Unknown Verified 10/10/22 09:48 Home Medications Medication Instructions Recorded Confirmed Type vit no.95-ferrous 1 tablet PO DAILY 03/13/22 02/12/23 History fumarate 28 mg-folic acid 800 mcg tablet () ferrous sulfate 325 mg (65 mg 325 mg PO DAILY 02/12/23 02/12/23 History iron) tablet (Iron (ferrous sulfate)) Laboratory Tests 02/12/23 02/12/23 02/12/23 08:42 08:42 08:42 WBC 9.6 K/mm3 K/mm3 (4.5-10.0) RBC 4.05 M/mm3 L M/mm3 (4.2-5.4) Hgb 10.8 g/dL L g/dL (12.0-15.0) Hct 33.7 % L % (37.0-47.0) MCV 83.2 fl fl (80-100) MCH 26.7 pg pg (26-34) MCHC 32.0 g/dl g/dl (32-36) RDW 14.6 % H % (11.5-14.5) Plt Count 133 k/mm3 L k/mm3 (150-375) MPV 12.2 fl H fl (7.4-10.4) Immature Gran % (Auto) 0.4 % % (0-0.5) Neut % (Auto) 78.8 % H % (45.5-73.1) Lymph % (Auto) 15.2 % L % (18.3-44.2) [place] % (Auto) 5.0 % % (2.6-8.5) Eos % (Auto) 0.2 % % (0-4.4) Baso % (Auto) 0.4 % % (0.2-1.2) Lymph # (Auto) 1.46 K/mm3 K/mm3 (0.9-3.2) [place] # (Auto) 0.5 K/mm3 K/mm3 (0.1-0.6) Eos # (Auto) 0.0 K/mm3 K/mm3 (0-0.3) Baso # (Auto) 0.0 K/mm3 K/mm3 (0.0-0.1) Abs Immat Gran (auto) 0.04 K/mm3 H K/mm3 (0.00-0.031) Absolute Neuts (auto) 7.6 K/mm3 H K/mm3 (1.3-6.7) Absolute Nucleated RBC 0.0 K/mm3 K/mm3 (0.0-0.012) Nucleated RBC % 0.0 % % (0.0-0.2) % Immature Plt Fraction 15.1 % H % (0.9-11.2) POC Capillary Glucose RPR Pending Blood Type Pending Antibody Screen Pending 02/12/23 08:54 WBC RBC Hgb Hct MCV MCH MCHC RDW Plt Count MPV Immature Gran % (Auto) Neut % (Auto) Lymph % (Auto) [place] % (Auto) Eos % (Auto) Baso % (Auto) Lymph # (Auto) [place] # (Auto) Eos # (Auto) Baso # (Auto) Abs Immat Gran (auto) Absolute Neuts (auto) Absolute Nucleated RBC Nucleated RBC % % Immature Plt Fraction POC Capillary Glucose 83 mg/dl mg/dl (65-105) RPR Blood Type Antibody Screen Patient hx anesthesia problems: none Family hx anesthesia problems: none Results Review: All pre-operative results and documents have been reviewed as part of the pre-operative evaluation. [facility] Past Medical History Medical History Gestational diabetes Gestational HTN No pertinent past medical history Surgical History Surgical History No pertinent past surgical history Family History Family History Mother No pertinent past medical history Father No pertinent past medical history Other Diabetes mellitus Social History Social History Smoking status: Never smoker Second hand tobacco smoke exposure: No Alcohol intake: never Substance use: never Lack of Transportation: No Lack of Food: Never True Current Housing: I Have Housing Concerned About Future Housing: No Difficulty Paying Gas/Electric Bills: No Difficulty Paying for Meds: No
[2023-02-12] MEDS: LACTATED RINGERS 1,000 ML 125 ML IV CONT ×2 (09:36→13:20)
[2023-02-12] MEDS: AMPICILLIN 2 GM/NS 100 ML 2 GM/100 ML BAG IVPB (09:37)
[2023-02-12] MEDS: OXYTOCIN 30 UNITS/NS 500 ML 30 UNITS/500 ML BAG IV CONT (09:45)
[2023-02-12 11:30] LABS: Rapid Plasma Reagin Non-Reactive (NonReactive)
--- NOTE | 2023-02-12 12:17 | PM.IMHP ---
H&P: HPI History of Present Illness Date/Time: 02/12/2376 Chief Complaint: Spontaneous rupture of membranes Narrative: 27 y/o at 34w5d here with srom. complicated by chtn (no medications), late diagnosis gdm (diet controlled) but not compliant with bringing in log, LGA and poly. On admission VSS Contractions regular FHR category 1 Cervix 1/thick/-3 scant fluid with a small bloody show ROM plus positive Pt comfortable Currently expectant management Antibiotics Offered transfer d/t early gestation and late dx GDM. Pt declines. Will speak with Dr Gaona about plan of care. Review of Systems Review of Systems: All systems reviewed & are unremarkable except as noted in HPI and below Constitutional: Constitutional: Reports as per HPI and Reports no additional constitutional complaints Eyes: Eyes: Reports as per HPI ENT: Reports system reviewed and no additional complaints, except as documented Cardiovascular: Cardiovascular: Reports as per HPI Respiratory: Respiratory: Reports as per HPI Gastrointestinal: Gastrointestinal: Reports as per HPI Genitourinary: Genitourinary: Reports no additional female genitourinary complaints Musculoskeletal: Musculoskeletal: Reports no additional musculoskeletal complaints Integumentary/Breasts: Skin/Breast: Reports system reviewed and no additional complaints, except as docu Neurologic: Reports system reviewed and no additional complaints, except as documented Psychiatric: Psychiatric: Reports no additional psychiatric complaints Endocrine: Endocrine: Reports no additional endocrine complaints Hematologic/Lymphatic: Hematologic/Lymphatic: Reports no additional hematologic/lymphatic complaints Allergic/Immunologic: Allergic/Immunologic: Reports no additional allergic/immunologic complaints REPLACED BY [facility] Past Medical History Medical History Gestational diabetes Gestational HTN No pertinent past medical history Surgical History Surgical History No pertinent past surgical history Family History Family History Mother No pertinent past medical history Father No pertinent past medical history Other Diabetes mellitus Social History Social History Smoking status: Never smoker Second hand tobacco smoke exposure: No Alcohol intake: never Substance use: never Lack of Transportation: No Lack of Food: Never True Current Housing: I Have Housing Concerned About Future Housing: No Difficulty Paying Gas/Electric Bills: No Difficulty Paying for Meds: No Currently Unemployed: No Education: High School Diploma/GED Difficulty w/ Childcare or Family Care: No Living arrangements: with family Gender identity (if verbalized by the patient): Female Sexual Orientation (if Verbalized by the Patient): Straight or Heterosexual Spiritual care concerns: No Meds Home Medications and Allergies Home Medications Medication Instructions Recorded Confirmed Type vit no.95-ferrous 1 tablet PO DAILY 03/13/22 02/12/23 History fumarate 28 mg-folic acid 800 mcg tablet () ferrous sulfate 325 mg (65 mg 325 mg PO DAILY 02/12/23 02/12/23 History iron) tablet (Iron (ferrous sulfate)) Allergies Allergy/AdvReac Type Severity Reaction Status Date / Time No Known Allergies Allergy Unknown Verified 10/10/22 09:48 Vital Signs Vital Signs - 24 hr 02/12/23 08:48 02/12/23 08:53 02/12/23 09:00 Temperature 97.8 F Pulse Rate 116 H 105 H Blood Pressure 128/90 126/78 Pulse Oximetry 02/12/23 09:01 02/12/23 09:15 02/12/23 09:30 Temperature Pulse Rate 102 H 92 101 H Blood Pressure 120/81 131/80 130/82 Pulse Oximetry 02/12/23 09:45 02/12/23 10:00 02/12/23 10:15 Temperat
[2023-02-12 12:22] LABS: Glucose Point of Care 80 mg/dl (65-105)
--- NOTE | 2023-02-12 12:26 | WPDOBADMIT ---
Obstetrics - Admit Note Admission Note: See admission h&p. record reviewed. No pertinent additions to the history and/or any subsequent changes in the physical findings that are not consistent with the expected course of the were found. Additions to the history and/or subsequent changes in the physical findings follow. None.
[2023-02-12] MEDS: AMPICILLIN 1 GM/NS 50 ML 1 GM/50 ML BAG IVPB (13:20)
[2023-02-12 14:15] LABS: Glucose Point of Care 70 mg/dl (65-105)
[2023-02-12 14:29] LABS: Amphetamine Screen Urine Negative (Negative); Barbiturate Screen Urine Negative (Negative); Benzodiazepines Screen Urine Negative (Negative); Cannabinoid Screen Urine Negative (Negative); Cocaine Screen Urine Negative (Negative); Methadone Screen Urine Negative (Negative); Opiate Screen Urine Negative (Negative); Phencyclidine Screen Urine Negative (Negative)
--- NOTE | 2023-02-12 15:52 | PM.OBPRVD ---
OB - Delivery Note Procedure Delivery date: 02/12/23 Procedure: Events: Chronic Hypertension and Gestational Diabetes Induction method: None Delivery monitor: External FHT and External Uterine Route of delivery: Episiotomy description: None Laceration Description: None Specimen: Yes Quantitative Blood Loss (ml): 208 Anesthesia type: None Complications: Port wine stained fluid in labor. No s/s of abruption. Narrative: Pedi present for delivery. vigorous but cord was clamped and cut to hand of to awaiting staff per their request for early gestation. Baby Date of : 02/12/23 Time of : 15:14 Weeks of gestation at delivery: 34 Weight (pounds): 7 Weight (ounces): 0 presentation: vertex position: Left Occiput Anterior Placenta delivery description: Spontaneous (Sent to pathology along with membranes/clot that delivered long before the placenta.) score one minute: 8 score five minutes: 9
[2023-02-12] MEDS: OXYTOCIN 30 UNITS/NS 500 ML 30 UNITS/500 ML BAG 125 UNITS IV CONT (15:54)
--- NOTE | 2023-02-12 18:03 | OBPPTRN ---
Patient transferred to post room #292 via w/c. Support person present. Oriented to unit, room, information board, rooming in, admission packet and security measures. Patient verbalizes understanding.
[2023-02-13] VITALS: BP 105/67; PULSE 102; RESP 18; TEMP 36.9
[2023-02-13 05:28] LABS: Hematocrit 29.5 % (37.0-47.0); Hemoglobin 9.6 g/dL (12.0-15.0)
[2023-02-13 07:50] VITALS: BP 120/84; PULSE 72; RESP 16; TEMP 36.6; O2SAT 100
--- NOTE | 2023-02-13 07:59 | PM.OBPNVD ---
OB - PN: Subj Subjective Date/time seen: 02/13/23 07:59 Patient comments: no complaints baby status: doing well OB - PN: Obj Data Labs 02/13/23 04:28 Labs: Laboratory Results - last 24 hr 02/12/23 02/12/23 02/12/23 08:42 08:42 08:42 WBC 9.6 RBC 4.05 L Hgb 10.8 L Hct 33.7 L MCV 83.2 MCH 26.7 MCHC 32.0 RDW 14.6 H Plt Count 133 L MPV 12.2 H Immature Gran % (Auto) 0.4 Neut % (Auto) 78.8 H Lymph % (Auto) 15.2 L [place] % (Auto) 5.0 Eos % (Auto) 0.2 Baso % (Auto) 0.4 Lymph # (Auto) 1.46 [place] # (Auto) 0.5 Eos # (Auto) 0.0 Baso # (Auto) 0.0 Abs Immat Gran (auto) 0.04 H Absolute Neuts (auto) 7.6 H Absolute Nucleated RBC 0.0 Nucleated RBC % 0.0 % Immature Plt Fraction 15.1 H POC Capillary Glucose Urine Opiates Screen Urine Methadone Screen Ur Barbiturates Screen Ur Phencyclidine Scrn Ur Amphetamine Screen U Benzodiazepines Scrn Urine Cocaine Screen U Cannabinoids Screen RPR Non-reactive Blood Type A Positive Antibody Screen Negative 02/12/23 02/12/23 02/12/23 08:54 12:06 13:26 WBC RBC Hgb Hct MCV MCH MCHC RDW Plt Count MPV Immature Gran % (Auto) Neut % (Auto) Lymph % (Auto) [place] % (Auto) Eos % (Auto) Baso % (Auto) Lymph # (Auto) [place] # (Auto) Eos # (Auto) Baso # (Auto) Abs Immat Gran (auto) Absolute Neuts (auto) Absolute Nucleated RBC Nucleated RBC % % Immature Plt Fraction POC Capillary Glucose 83 80 Urine Opiates Screen Negative Urine Methadone Screen Negative Ur Barbiturates Screen Negative Ur Phencyclidine Scrn Negative Ur Amphetamine Screen Negative U Benzodiazepines Scrn Negative Urine Cocaine Screen Negative U Cannabinoids Screen Negative RPR Blood Type Antibody Screen 02/12/23 02/13/23 14:11 04:28 WBC RBC Hgb 9.6 L Hct 29.5 L MCV MCH MCHC RDW Plt Count MPV Immature Gran % (Auto) Neut % (Auto) Lymph % (Auto) [place] % (Auto) Eos % (Auto) Baso % (Auto) Lymph # (Auto) [place] # (Auto) Eos # (Auto) Baso # (Auto) Abs Immat Gran (auto) Absolute Neuts (auto) Absolute Nucleated RBC Nucleated RBC % % Immature Plt Fraction POC Capillary Glucose 70 Urine Opiates Screen Urine Methadone Screen Ur Barbiturates Screen Ur Phencyclidine Scrn Ur Amphetamine Screen U Benzodiazepines Scrn Urine Cocaine Screen U Cannabinoids Screen RPR Blood Type Antibody Screen Imaging Radiologist's impression: Impressions Obstetrics Ultrasound 02/12/23 09:10 IMPRESSION: 1. Single living fetus in vertex presentation. OB - PN A/P Plan day: 1 Plan: routine care Time Spent With Patient Time: Total time spent is greater than 50% in coordination of care (as documented) at patient's floor/unit and/or counseling patient: Time with patient: less than 15 minutes Review of Systems Review of Systems: All systems reviewed & are unremarkable except as noted in HPI and below Exam Narrative: Fundus firm and vaginal flow controlled. No lower ext redness, warmth, or edema. Negative homans. Denies h/a, v/d or e/p. Reflexes normal. Const: General: comfortable Chest: Breast/axilla inspection: normal inspection of the breasts Resp: Effort & Inspection: normal respiratory effort Cardio: Rate: regular rate GI: GI Palp: Yes Soft to palpation Psych: Appearance: grossly normal Affect: normal affect Attitude: cooperative Thought content: Yes Normal thought content present Judgement: Good judgement present (Psych)
[2023-02-13] MEDS: POLYSACCHARIDE IRON COMPLEX 150 MG CAPSULE PO ×2 (08:17→17:36)
[2023-02-13 11:43] VITALS: BP 118/74; PULSE 95; RESP 18; TEMP 36.4; O2SAT 99
[2023-02-13 19:40] VITALS: BP 115/72; PULSE 86; RESP 18; TEMP 36.9
[2023-02-14 07:19] VITALS: BP 112/60; PULSE 84; RESP 18; TEMP 36.1; O2SAT 99
--- NOTE | 2023-02-14 07:49 | PM.OBPNVD ---
OB - PN: Subj Subjective Date/time seen: 02/14/23 07:49 s/p vaginal delivery day 2 OB - PN: Obj Data Labs 02/13/23 04:28 OB - PN A/P Plan day: 2 Time Spent With Patient Time: Total time spent is greater than 50% in coordination of care (as documented) at patient's floor/unit and/or counseling patient: Review of Systems Review of Systems: All systems reviewed & are unremarkable except as noted in HPI and below Exam Const: General: cooperative and healthy appearing Chest: Chest palpation & inspection: normal inspection of the chest Resp: Effort & Inspection: normal respiratory effort Skin: General skin exam: normal color and no rashes or lesions noted Extrem: General: normal to inspection
--- NOTE | 2023-02-14 07:51 | P.DS_ITS ---
DS: Admitting Diagnosis Discharge Date 02/14/2023 Admitting Diagnosis pprom DS: Discharge Diagnosis Discharge Diagnosis (1) Vaginal delivery: Code(s): O80 - Encounter for full-term uncomplicated delivery Status: Acute OB - DS: Summary OB Procedures : None OB Procedures Intrapartum: Spontaneous Vag Delivery OB Procedures: : None Time Spent with Patient Time attestation: Total time spent providing and/or coordinating discharge services: DS: Data Data Completed and Pending Pending studies at discharge: Pending at discharge 02/12/23 15:26 Surgical [PTH] Routine Discharge Plan Discharge Attending physician on discharge: Corey Gaona Discharging Clinician: Thelma Bello Patient Disposition: Home, Self-Care Activity: pelvic rest Diet: regular Patient Instructions: Antibiotic Form Stand Alone Forms: General Discharge Information Follow-up/Referrals: Maureen Smith CNM [Certified Nurse Call Out Operator] - Discharge Medications: New ibuprofen 600 mg Tablet 600 mg PO Q6H PRN (Reason: Cramping) Qty: 30 0RF Continued PNV cmb#95-ferrous fumarate-FA [] 28 mg iron- 800 mcg Tablet 1 tablet PO DAILY ferrous sulfate [Iron (ferrous sulfate)] 325 mg (65 mg iron) Tablet 325 mg PO DAILY Date of admission: 02/12/23 08:29 Primary Care Provider: UNKNOWN,DOCTOR Admitting Provider: Corey Gaona Attending physician on admission: Corey Gaona Condition: Stable
[2023-02-14] MEDS: POLYSACCHARIDE IRON COMPLEX 150 MG CAPSULE PO ×2 (09:27→16:28)
--- NOTE | 2023-02-14 16:30 | PC.NURSE ---
Patient viewed the discharge video Mother & Baby Care, The First Two Weeks . Patient was given the opportunity and encouraged to ask questions. Patient verbalized understanding of information shared and has been given the mother/baby guide for home reference.
[2023-02-15 10:22] VITALS: BP 117/77; PULSE 87; RESP 20; TEMP 36.8; O2SAT 100
== END 2023-02-14 16:30 | disposition home or self-care (01) | DRG 560 ==
LOC: ANHOBOP 08:40 → ANHLDR 08:40 → ANHOB2 18:25
PROVIDERS: Admitting Provider Advanced Practice Midwife; Referring Provider Advanced Practice Midwife; Visit Provider Obstetrics & Gynecology
DX: O42.013 Preterm premature rupture of membranes, onset of labor within 24 hours of rupture, third trimester (principal); O60.14X0 Preterm labor third trimester with preterm delivery third trimester, not applicable or unspecified; O10.92 Unspecified pre-existing hypertension complicating childbirth; O24.420 Gestational diabetes mellitus in childbirth, diet controlled; Z37.0 Single live birth; Z3A.34 34 weeks gestation of pregnancy; O40.3XX0 Polyhydramnios, third trimester, not applicable or unspecified; O69.81X0 Labor and delivery complicated by cord around neck, without compression, not applicable or unspecified; O36.63X0 Maternal care for excessive fetal growth, third trimester, not applicable or unspecified
CPT/HCPCS: 36415; 76815; 80307; 82948; 84112; 85014; 85018; 85025; 85055; 86592; 86850; 86900; 86901; 88305; 88307; A9270; J0290; J2590; J7120

== ENCOUNTER 2024-02-27 14:41 | Outpatient (RCR) | payer OTHER, SELFPAY ==
--- NOTE | ~2024-02-27 | US_ITS ---
EXAMINATION: US OB BPP wo non-stress DATE: 02/27/2024 15:56 INDICATION: Decelerations. Third trimester. TECHNIQUE: Real-time pelvic ultrasound was performed. COMPARISON: None. FINDINGS: There is a single living fetus in vertex presentation. The placenta is anterior. heart rate is 130 beats per minute (bpm). The deepest vertical pocket is 7.8 cm, which is normal. Biophysical profile performed by the technologist: breathing (30 sec sustained breathing in 30 minutes): 2 out of 2 movement (3 gross body movements in 30 minutes): 2 out of 2 tone (one episode of jiwmqic-iacgzqfgg-svulfza limb movement): 2 out of 2 Amniotic fluid pocket (2 cm): 2 out of 2 Total score: 8 out of 8 IMPRESSION: 1. Single living fetus in vertex presentation. 2. Biophysical profile 8 out of 8. Reviewed, dictated and finalized at location E.
[2024-02-27 15:33] VITALS: BP 112/74; PULSE 95
--- NOTE | 2024-02-27 16:11 | PC.NURSE ---
Wilber Bello CNM notified of NST and BPP, okay to discharge. Appt scheduled for next week
== END 2024-04-28 08:15 | disposition home or self-care (01) ==
LOC: ANHOBOP 14:41
PROVIDERS: Visit Provider Advanced Practice Midwife
DX: O36.8330 Maternal care for abnormalities of the fetal heart rate or rhythm, third trimester, not applicable or unspecified (principal); Z3A.35 35 weeks gestation of pregnancy
CPT/HCPCS: 59025; 76819

== ENCOUNTER 2024-03-04 17:33 | Outpatient (CLI) | payer OTHER, SELFPAY ==
[2024-03-04 17:51] VITALS: BP 140/78; PULSE 118
== END 2024-03-04 18:15 | disposition home or self-care (01) ==
LOC: ANHOBOP 18:14 → ANHLDR 18:15
PROVIDERS: Visit Provider Advanced Practice Midwife
DX: O41.8X90 Other specified disorders of amniotic fluid and membranes, unspecified trimester, not applicable or unspecified (principal); Z3A.00 Weeks of gestation of pregnancy not specified
CPT/HCPCS: 59025; 84112; 99199

== ENCOUNTER 2024-03-07 08:26 | Outpatient (CLI) | payer OTHER, SELFPAY ==
[2024-03-07 08:58] VITALS: BP 115/74; PULSE 91
[2024-03-07 09:15] VITALS: BP 115/72; PULSE 97
[2024-03-07 09:15] LABS: Appearance Urine Clear (Clear); Bilirubin Urine Negative (Negative); Blood Urine Negative (Negative); Color Urine Yellow (Yellow); Glucose Urine UA Negative (Negative); Ketones Urine Negative (Negative); Leukocyte Esterase Ur Negative LEU/UL (Negative); Nitrate Urine Negative (Negative); Protein Urine Negative (Negative); Urobilinogen Urine 0.2 mg/dL (<2.0)
[2024-03-07 09:17] VITALS: BP 115/74; PULSE 99; BMI 38.4
[2024-03-07 09:20] LABS: Basophils Percent Auto 0.5 % (0.2-1.2); Eosinophils Percent Auto 0.3 % (0-4.4); Hematocrit 34.4 % (37.0-47.0); Immature Granulocyte Absolute 0.04 K/mm3 (0.00-0.031); Immature Granulocyte Percent A 0.5 % (0-0.5); Immature Platelet Fraction Pct 13.7 % (0.9-11.2); Lymphocytes Absolute Auto 1.58 K/mm3 (0.9-3.2); Lymphocytes Percent Auto 19.9 % (18.3-44.2); Mean Corpuscular Volume 81.3 fl (80-100); Mean Platelet Volume 12.2 fl (7.4-10.4); Monocytes Absolute Auto 0.4 K/mm3 (0.1-0.6); Monocytes Percent Auto 5.4 % (2.6-8.5); Neutrophils Absolute Auto 5.8 K/mm3 (1.3-6.7); Neutrophils Percent Auto 73.4 % (45.5-73.1); Platelet Count Result 134 k/mm3 (150-375); Red Blood Count 4.23 M/mm3 (4.2-5.4); Red Cell Distribution Width 14.6 % (11.5-14.5); White Blood Count 7.9 K/mm3 (4.5-10.0)
[2024-03-07 09:26] LABS: Alanine Aminotransferase 14 U/L (6-35); Albumin Level 3.8 g/dL (3.5-5.1); Alkaline Phosphatase 157 U/L (38-126); Anion Gap 5 mmol/L (4-12); Aspartate Amino Transferase 19 U/L (14-36); Bilirubin,Total 0.4 mg/dL (0.2-1.3); Blood Urea Nitrogen 4 mg/dL (7-17); Calcium 8.7 mg/dL (8.4-10.2); Carbon Dioxide 21 mmol/L (22-30); Chloride 106 mmol/L (98-107); Estimated CRCL calculation 160 ml/min; Estimated Glomerular Filt Rate > 60; Glucose 97 mg/dL (65-110); Potassium 3.6 mmol/L (3.4-5.0); Sodium 132 mmol/L (137-145); Uric Acid 4.7 mg/dL (2.5-7.5)
[2024-03-07 09:27] LABS: Creatinine Urine 73.2 mg/dL; Total Protein Urine Random 8 mg/dL; Ur Ttl Prot Creatinine Ratio 0.11 mg/mg (0-0.20)
[2024-03-07 09:30] VITALS: BP 99/73; PULSE 98
[2024-03-07 09:44] VITALS: BP 99/73; PULSE 99
--- NOTE | 2024-03-07 09:44 | PC.NURSE ---
Wilber Bello CNM called. She has reviewed labs and BP's. Informed NST reactive. IOL scheduled for Sunday night going into Sunday. OK to discharge pt to home.
[2024-03-07 09:45] LABS: Add Urine Microscopic? NO
== END 2024-03-07 09:48 | disposition home or self-care (01) ==
LOC: ANHOBOP 08:35 → ANHOBPP 08:36
PROVIDERS: Visit Provider Advanced Practice Midwife
DX: O13.9 Gestational [pregnancy-induced] hypertension without significant proteinuria, unspecified trimester (principal); Z3A.00 Weeks of gestation of pregnancy not specified
CPT/HCPCS: 36415; 59025; 80053; 81003; 82570; 84156; 84550; 85025; 85055; 99199

== ENCOUNTER 2024-03-12 00:01 | Inpatient (IN) | payer OTHER, SELFPAY ==
[2024-03-12] VITALS (248 sets, daily range): BP systolic 87–134; BP diastolic 51–88; PULSE 64–114; RESP 18; TEMP 36.5–37.1; O2SAT 88–100; BMI 38.3
--- NOTE | 2024-03-12 00:39 | P.PNAN_ITS ---
Anes - Eval Pre Procedure Procedure: Labor epidural Date/Time: 03/12/24 00:39 Surgeon: Candelaria Preop Diagnosis: Abdominal pain with contractions Pre Op Diagnosis: Induction of Labor Patient Data Age: 28 Gender: F Height: Weight: Last Vital Signs Pulse Ox 97 03/12/24 00:35 Allergies Allergy/AdvReac Type Severity Reaction Status Date / Time No Known Allergies Allergy Unknown Verified 03/05/24 14:05 Home Medications Medication Instructions Recorded Confirmed Type vit no.95-ferrous 1 tablet PO DAILY 03/13/22 03/07/24 History fumarate 28 mg-folic acid 800 mcg tablet () : gestational age HCG: positive Patient hx anesthesia problems: none Family hx anesthesia problems: none Results Review: All pre-operative results and documents have been reviewed as part of the pre- operative evaluation. [facility] Past Medical History Medical History Gestational diabetes Gestational HTN Morbid obesity No pertinent past medical history Surgical History Surgical History No pertinent past surgical history Family History Family History Mother No pertinent past medical history Father No pertinent past medical history Other Diabetes mellitus Social History Social History Smoking status: Never smoker Second hand tobacco smoke exposure: No Alcohol intake: never Substance use: never Do You Feel Safe in your Home?: Yes Lack of Transportation: No Lack of Food: Never True Current Housing: I Have Housing Concerned About Future Housing: No Difficulty Paying Gas/Electric Bills: No Difficulty Paying for Meds: No Currently Unemployed: No Education: High School Diploma/GED Difficulty w/ Childcare or Family Care: No Living arrangements: with family Gender identity (if verbalized by the patient): Female Sexual Orientation (if Verbalized by the Patient): Straight or Heterosexual Spiritual care concerns: No Exam Day of Procedure 03/12/24 00:39 Patient weight: morbidly obese
[2024-03-12 01:11] LABS: Basophils Percent Auto 0.5 % (0.2-1.2); Eosinophils Percent Auto 0.4 % (0-4.4); Hematocrit 33.3 % (37.0-47.0); Hemoglobin 10.7 g/dL (12.0-15.0); Immature Granulocyte Absolute 0.03 K/mm3 (0.00-0.031); Immature Granulocyte Percent A 0.4 % (0-0.5); Lymphocytes Absolute Auto 1.71 K/mm3 (0.9-3.2); Lymphocytes Percent Auto 20.7 % (18.3-44.2); Mean Corpuscular HGB Conc 32.1 g/dl (32-36); Mean Corpuscular Hemoglobin 26.2 pg (26-34); Mean Corpuscular Volume 81.6 fl (80-100); Mean Platelet Volume 12.4 fl (7.4-10.4); Monocytes Absolute Auto 0.5 K/mm3 (0.1-0.6); Monocytes Percent Auto 6.3 % (2.6-8.5); Neutrophils Absolute Auto 5.9 K/mm3 (1.3-6.7); Neutrophils Percent Auto 71.7 % (45.5-73.1); Platelet Count Result 126 k/mm3 (150-375); Red Blood Count 4.08 M/mm3 (4.2-5.4); Red Cell Distribution Width 14.6 % (11.5-14.5); White Blood Count 8.3 K/mm3 (4.5-10.0)
[2024-03-12] MEDS: miSOPROStol 25 MCG TABLET 50 MCG PO ×2 (01:32→05:32)
--- NOTE | 2024-03-12 02:01 | LDADM ---
This patient, Susan Barr, was admitted to Labor/Delivery/Recovery 104 on 03/12/24 at 00:01. Plans for labor, pain management and were discussed with patient. Patient/family oriented to hospital policies and general routines including ID bracelet, bed and alarms, visiting hours, pain management, procedures, bathroom and other care routines, personal items, smoking policy, room service/diet and guest tray routines, security routines, and visiting hours. Patient/Family are encouraged to report perceived risks to care and to ask questions if they do not understand what they are told or what they should do. See OBIX for further documentation.
[2024-03-12 02:22] LABS: Alanine Aminotransferase 12 U/L (6-35); Albumin Level 3.8 g/dL (3.5-5.1); Alkaline Phosphatase 160 U/L (38-126); Anion Gap 10 mmol/L (4-12); Aspartate Amino Transferase 25 U/L (14-36); Bilirubin,Total 0.8 mg/dL (0.2-1.3); Blood Urea Nitrogen 4 mg/dL (7-17); Calcium 8.9 mg/dL (8.4-10.2); Carbon Dioxide 16 mmol/L (22-30); Chloride 109 mmol/L (98-107); Estimated Glomerular Filt Rate > 60; Glucose 102 mg/dL (65-110); Potassium 3.8 mmol/L (3.4-5.0); Sodium 135 mmol/L (137-145)
--- NOTE | 2024-03-12 07:36 | WPDOBADMIT ---
Obstetrics - Admit Note Admission Note: record reviewed. No pertinent additions to the history and/or any subsequent changes in the physical findings that are not consistent with the expected course of the were found. Additions to the history and/or subsequent changes in the physical findings follow. Admit for GHTN, IOL, SVE /-3 attempted AROM, will continue to monitor
--- NOTE | 2024-03-12 07:38 | WPDANESEPP ---
Anes - Eval Pre Procedure Procedure: labor epidural Date/Time: 03/12/24 07:38 Preop Diagnosis: pain during labor Pre Op Diagnosis: Induction of Labor Patient Data Age: 28 Gender: F Height: 1.63 m Weight: 101.4 kg Last Vital Signs Temp 36.5 C 03/12/24 05:32 Pulse 93 03/12/24 07:00 BP 115/73 03/12/24 07:00 Pulse Ox 96 03/12/24 07:38 O2 Del Method Room Air 03/12/24 01:59 Allergies Allergy/AdvReac Type Severity Reaction Status Date / Time No Known Allergies Allergy Unknown Verified 03/05/24 14:05 Home Medications Medication Instructions Recorded Confirmed Type vit no.95-ferrous 1 tablet PO DAILY 03/13/22 03/07/24 History fumarate 28 mg-folic acid 800 mcg tablet () Laboratory Tests 03/12/24 03/12/24 00:35 01:34 WBC 8.3 K/mm3 (4.5-10.0) RBC 4.08 L M/mm3 (4.2-5.4) Hgb 10.7 L g/dL (12.0-15.0) Hct 33.3 L % (37.0-47.0) MCV 81.6 fl (80-100) MCH 26.2 pg (26-34) MCHC 32.1 g/dl (32-36) RDW 14.6 H % (11.5-14.5) Plt Count 126 L k/mm3 (150-375) MPV 12.4 H fl (7.4-10.4) Immature Gran % (Auto) 0.4 % (0-0.5) Neut % (Auto) 71.7 % (45.5-73.1) Lymph % (Auto) 20.7 % (18.3-44.2) [place] % (Auto) 6.3 % (2.6-8.5) Eos % (Auto) 0.4 % (0-4.4) Baso % (Auto) 0.5 % (0.2-1.2) Lymph # (Auto) 1.71 K/mm3 (0.9-3.2) [place] # (Auto) 0.5 K/mm3 (0.1-0.6) Eos # (Auto) 0.0 K/mm3 (0-0.3) Baso # (Auto) 0.0 K/mm3 (0.0-0.1) Abs Immat Gran (auto) 0.03 K/mm3 (0.00-0.031) Absolute Neuts (auto) 5.9 K/mm3 (1.3-6.7) Absolute Nucleated RBC 0.000 K/mm3 (0.0-0.012) Nucleated RBC % 0.0 % (0.0-0.2) Sodium 135 L mmol/L (137-145) Potassium 3.8 mmol/L (3.4-5.0) Chloride 109 H mmol/L (98-107) Carbon Dioxide 16 L mmol/L (22-30) Anion Gap 10 mmol/L (4-12) BUN 4 L mg/dL (7-17) Creatinine 0.40 L mg/dL (0.7-1.0) Estim Creat Clear Calc Not Reportable Estimated GFR > 60 (59 - ) Glucose 102 mg/dL (65-110) Uric Acid 5.0 mg/dL (2.5-7.5) Calcium 8.9 mg/dL (8.4-10.2) Total Bilirubin 0.8 mg/dL (0.2-1.3) AST 25 U/L (14-36) ALT 12 U/L (6-35) Alkaline Phosphatase 160 H U/L (38-126) Total Protein 7.0 g/dL (6.3-8.2) Albumin 3.8 g/dL (3.5-5.1) RPR Pending Blood Type A Positive Antibody Screen Negative : gestational age HCG: positive Patient hx anesthesia problems: none Family hx anesthesia problems: none Results Review: All pre-operative results and documents have been reviewed as part of the pre-operative evaluation. [facility] Past Medical History Medical History Gestational diabetes Gestational HTN Morbid obesity No pertinent past medical history Surgical History Surgical History No pertinent past surgical history Family History Family History Mother No pertinent past medical history Father No pertinent past medical history Other Diabetes mellitus Social History Social History Smoking status: Never smoker Second hand tobacco smoke exposure: No Alcohol intake: never Substance use: never Do You Feel Safe in your Home?: Yes Lack of Transportation: No Lack of Food: Never True Current Housing: I Have Housing Concerned About Future Housing: No Difficulty Paying Gas/Electric Bills: No Difficulty Paying for Meds: No Currently Unemployed: No Education: High School Diploma/GED Difficulty w/ Childcare or Family Care: No Living arrangements: with family G
[2024-03-12 09:10] LABS: Rapid Plasma Reagin Non-Reactive (NonReactive)
[2024-03-12] MEDS: LACTATED RINGERS 1,000 ML 125 ML IV CONT ×2 (09:56→11:25)
[2024-03-12] MEDS: OXYTOCIN 30 UNITS/NS 500 ML 30 UNITS/500 ML BAG IV CONT (09:56)
[2024-03-12] MEDS: miSOPROStol 200 MCG TABLET 1000 MCG RECTAL (17:40)
--- NOTE | 2024-03-12 17:40 | PM.OBPRVD ---
OB - Vaginal Delivery Note Procedure Delivery date: 03/12/24 Events: Gestational Hypertension Induction method: AROM, Per Misoprostol Protocol and Per Pitocin Protocol Delivery monitor: External FHT and External Uterine Route of delivery: Episiotomy description: None Laceration Description: None Specimen: No Quantitative Blood Loss (ml): 75 Anesthesia type: Epidural Disposition: Floor Complications: No immediate complications Baby Date of : 03/12/24 Time of : 17:27 Weeks of gestation at delivery: 37 gender: Female Weight (pounds): 6 Weight (ounces): 14 presentation: vertex position: Left Occiput Anterior Placenta delivery description: Spontaneous Cord Vessel Description: 3 Vessels score one minute: 8 score five minutes: 9 Narrative: mother and baby skin to skin in stable condition
[2024-03-12] MEDS: OXYTOCIN 30 UNITS/NS 500 ML 30 UNITS/500 ML BAG 125 UNITS IV CONT (17:57)
[2024-03-12 19:02] LABS: Glucose Point of Care 122 mg/dl (65-105)
--- NOTE | 2024-03-12 22:05 | PC.NURSE ---
Patient transferred to post room #291 via (W/C). Support person present. Oriented to unit, room, information board, rooming in, admission packet and security measures. Patient verbalizes understanding.
[2024-03-13 01:44] VITALS: BP 108/68; PULSE 95; RESP 16; TEMP 37.1; O2SAT 94
[2024-03-13 04:46] LABS: Hematocrit 34.8 % (37.0-47.0)
[2024-03-13 05:42] VITALS: BP 102/67; O2SAT 97
[2024-03-13] MEDS: IBUPROFEN 600 MG TABLET PO (07:57)
--- NOTE | 2024-03-13 08:09 | PM.OBPNVD ---
OB - PN: Subj Subjective Date/time seen: 03/13/24 08:09 Interval history: pp day 1 doing well pain well managed OB - PN: Obj Data Labs 03/13/24 04:17 03/12/24 01:34 Labs: Laboratory Results - last 24 hr 03/12/24 03/12/24 03/13/24 00:35 18:59 04:17 Hgb 11.0 L Hct 34.8 L POC Capillary Glucose 122 H RPR Non-reactive OB - PN A/P Plan day: 1 Plan: routine care Time Spent With Patient Time: Total time spent is greater than 50% in coordination of care (as documented) at patient's floor/unit and/or counseling patient: Exam Const: General: cooperative and healthy appearing Resp: Effort & Inspection: normal respiratory effort Cardio: Rate: regular rate Skin: General skin exam: normal color
[2024-03-13 08:35] VITALS: BP 113/74; PULSE 94; RESP 16; TEMP 36.4; O2SAT 98
[2024-03-13 15:35] VITALS: BP 114/74; PULSE 75; RESP 16; TEMP 36.4; O2SAT 99
[2024-03-13 20:13] VITALS: BP 114/77; PULSE 91; RESP 16; TEMP 36.5; O2SAT 98
[2024-03-13 20:20] VITALS: PULSE 91; RESP 16; O2SAT 98
[2024-03-14 01:28] VITALS: BP 110/74; PULSE 81; O2SAT 99
[2024-03-14 05:26] VITALS: BP 90/55; PULSE 71; RESP 16; TEMP 36.6; O2SAT 99
[2024-03-14 07:40] VITALS: BP 126/77; PULSE 88; RESP 18; TEMP 36.3; O2SAT 99
--- NOTE | 2024-03-14 08:33 | PM.OBPNVD ---
OB - PN: Subj Subjective Date/time seen: 03/14/24 08:33 Interval history: pp day 2 doing well pain well managed ready for discharge home OB - PN: Obj Data Labs 03/13/24 04:17 03/12/24 01:34 OB - PN A/P Plan day: 1 Plan: routine care and discharge home Time Spent With Patient Time: Total time spent is greater than 50% in coordination of care (as documented) at patient's floor/unit and/or counseling patient: Review of Systems Review of Systems: All systems reviewed & are unremarkable except as noted in HPI and below Exam Const: General: cooperative and healthy appearing Resp: Effort & Inspection: normal respiratory effort Cardio: Rate: regular rate Skin: General skin exam: normal color
--- NOTE | 2024-03-14 08:35 | P.DS_ITS ---
DS: Admitting Diagnosis Discharge Date 03/14/24 Admitting Diagnosis induction of labor DS: Discharge Diagnosis Discharge Diagnosis (1) Vaginal delivery: Code(s): O80 - Encounter for full-term uncomplicated delivery Status: Acute OB - DS: Summary OB Procedures : PIH Mgmt OB Procedures Intrapartum: Spontaneous Vag Delivery OB Procedures: : None Peripartum Data Laceration Description: None Episiotomy description: None Time Spent with Patient Time attestation: Total time spent providing and/or coordinating discharge services: Discharge Plan Discharge Attending physician on discharge: Danish Matthews Consulting providers: Thelma Bello Discharging Clinician: Danish Matthews Patient Disposition: Home, Self-Care Activity: may shower and pelvic rest Diet: as tolerated Patient Instructions: Antibiotic Form Stand Alone Forms: General Discharge Information Follow-up/Referrals: Thelma Bello, CNM [Certified Nurse Assistant Food Service Director] - 5 Weeks Discharge Medications: New docusate sodium 100 mg Capsule 100 mg PO BID PRN (Reason: Constipation) Qty: 60 0RF ibuprofen 600 mg Tablet 600 mg PO Q6H PRN (Reason: Cramping) Qty: 30 0RF Continued PNV cmb#95-ferrous fumarate-FA [] 28 mg iron- 800 mcg Tablet 1 tablet PO DAILY Date of admission: 03/12/24 00:01 Primary Care Provider: PHYSICIAN,CONSUMER ELECTRONIC RETAIL SPECIALIST Admitting Provider: Corey Gaona Attending physician on admission: Corey Gaona Condition: Stable
[2024-03-15 10:04] VITALS: BP 113/72; PULSE 78; RESP 18; TEMP 36.8; O2SAT 100
== END 2024-03-14 09:53 | disposition home or self-care (01) | DRG 560 ==
LOC: ANHOB2 03-14 08:54 → ANHLDR 03-17 10:28 → ANHOB2 03-17 10:28
PROVIDERS: Advanced Practice Midwife; Obstetrics & Gynecology; Admitting Provider Obstetrics & Gynecology; Visit Provider Obstetrics & Gynecology
DX: O13.4 Gestational [pregnancy-induced] hypertension without significant proteinuria, complicating childbirth (principal); Z37.0 Single live birth; Z3A.37 37 weeks gestation of pregnancy; O69.81X0 Labor and delivery complicated by cord around neck, without compression, not applicable or unspecified; O24.429 Gestational diabetes mellitus in childbirth, unspecified control
CPT/HCPCS: 36415; 80053; 82948; 84550; 85014; 85018; 85025; 86592; 86850; 86900; 86901; A9270; J2590; J2795; J7120

== ENCOUNTER 2024-05-14 15:04 | Emergency (ER) | payer OTHER, SELFPAY ==
[2024-05-14 15:14] VITALS: BP 138/86; PULSE 87; RESP 16; TEMP 36.7; O2SAT 99
--- NOTE | 2024-05-14 15:39 | ED.SKABFB ---
HPI - Skin/Abscess/Foreign Bdy General Chief complaint: Skin/Abscess/Foreign Body Stated complaint: rash on right hand, right/left arm Time Seen by Provider: 05/14/24 15:26 Source: patient, family (Mother) and RN notes reviewed Mode of arrival: ambulatory Limitations: no limitations History of Present Illness HPI narrative: Patient presents today complaining of a chronic rash to the bilateral hands times 10 months. She has been treated with some steroid cream left over from her mother's prescription. States it did help, but she ran out. She does not have a PCP, but states she will call on Sunday and schedule a visit with someone. Related Data Allergies Allergy/AdvReac Type Severity Reaction Status Date / Time No Known Allergies Allergy Unknown Verified 05/13/24 14:35 Review of Systems Review of Systems: CONSTITUTIONAL: Denies body aches, fever, chills, or sweats. EYES: Denies visual changes, redness, or discharge. ENT: Denies rhinorrhea, congestion, sore throat, or otalgia. CARDIOVASCULAR: Denies chest pain, palpitations, or edema. RESPIRATORY: Denies cough or dyspnea. GASTROINTESTINAL: Denies abdominal pain, nausea, vomiting, or diarrhea. GENITOURINARY: Denies dysuria or hematuria. SKIN: Bilateral hand rash MUSCULOSKELETAL: Denies back pain, joint pain, or myalgia. NEUROLOGIC: Denies headache, numbness, tingling, or weakness. PSYCH: Denies depression or anxiety. [facility] Past Medical History Medical History Gestational diabetes Gestational HTN Morbid obesity No pertinent past medical history Surgical History Surgical History No pertinent past surgical history Family History Family History Mother No pertinent past medical history Father No pertinent past medical history Other Diabetes mellitus Social History Social History Smoking status: Never smoker Second hand tobacco smoke exposure: No Alcohol intake: never Substance use: never Substance use type: does not use Do You Feel Safe in your Home?: Yes Lack of Transportation: No Lack of Food: Never True Current Housing: I Have Housing Concerned About Future Housing: No Difficulty Paying Gas/Electric Bills: No Difficulty Paying for Meds: No Currently Unemployed: No Education: High School Diploma/GED Difficulty w/ Childcare or Family Care: No Living arrangements: with family Gender identity (if verbalized by the patient): Female Sexual Orientation (if Verbalized by the Patient): Straight or Heterosexual Spiritual care concerns: No Comments At time of signature, I have reviewed and agree with nursing past medical, surgical, social and family history unless otherwise noted. Please see nursing chart for further information. There is no relevant family history pertinent to the presenting complaint Exam Narrative: GENERAL: Well-appearing, well-nourished, and in no acute distress. HEAD: Normocephalic, atraumatic. EYES: EOMI. No redness or drainage. Conjunctivae normal. ENT: Mucous membranes pink and moist. NECK: Normal AROM. CHEST: No respiratory distress. EXTREMITIES: Normal range of motion. No edema. SKIN: Warm, dry. Capillary refill normal. Normal skin turgor. Bilateral hand rash, peeling, erythematous with some honey crusting and drainage to the right 3rd and 4th finger. Right hand is swollen and worse than the left. NEURO: No focal deficits. Alert and oriented x3. Gait steady. PSYCH: Normal affect. No signs of depression or anxiety. Course Course Level of Care: Express Care Visit Vital Signs Vital signs: Vital Signs Temperature 98.1 F 05/14/24 15:14 Pulse Rate 87 05/14/24 15:14 Respiratory Rate 16 05/14/24 15:14 Blood Pressure 138/86 07
== END 2024-05-14 15:52 | disposition home or self-care (01) ==
PROVIDERS: Emergency Provider Nurse Practitioner
DX: L01.00 Impetigo, unspecified (principal); L30.9 Dermatitis, unspecified; E66.01 Morbid (severe) obesity due to excess calories
CPT/HCPCS: 99213; G0463